=== PATIENT | male | born 1980 | race Two or more races ===

== ENCOUNTER 2018-05-24 16:56 | Emergency (ER) | payer OTHER ==
[~2018-05-24] VITALS: Ht 160 cm; Wt 74.8 kg
[2018-05-24] MEDS ORDERED: IV NORMAL SALINE 1000ML BAG 1,000 ML IV SCH (17:42)
[2018-05-24 18:11] LABS: BASO # 0.1 x10^3/uL (0.0-0.2); BASO % 1 % (0-3); EOS # 0.3 x10^3/uL (0.0-0.7); EOS % 4 % (0-3); HEMATOCRIT 49.7 % (39.0-53.0); HEMOGLOBIN 16.8 g/dL (13.0-17.5); LYMPH # 2.5 x10^3/uL (1.0-4.8); LYMPH % 30 % (24-48); MEAN CORPUSCULAR HEMOGLOBIN 28 pg (25-35); MEAN CORPUSCULAR HGB CONC 34 g/dL (31-37); MEAN CORPUSCULAR VOLUME 82 fL (79-100); MONO # 0.7 x10^3/uL (0.0-1.1); MONO % 8 % (0-9); NEUT # 4.8 x10^3uL (1.8-7.7); NEUT % 57 % (31-73); PLATELET COUNT 369 x10^3/uL (140-400); RED BLOOD COUNT 6.09 x10^6/uL (4.30-5.70); RED CELL DISTRIBUTION WIDTH 14.7 % (11.5-14.5); WHITE BLOOD COUNT 8.4 x10^3/uL (4.0-11.0)
--- NOTE | 2018-05-24 18:12 | PHYS DOC ---
Past Medical History Additional Past Medical Histor: denies all history (LV CEBALLOS APRN) Additional Information: states very occoc Alcohol Use: Occasionally Additional Information: 4 beers a month Drug Use: None (LV CEBALLOS APRN) Adult General Chief Complaint Chief Complaint: ABDOMINAL PAIN HPI HPI Patient is a 37 year old male who presents with right upper quadrant tenderness and pain for the last 3 days. Patient states he just awoke and had this stabbing pain. It does not radiate. Patient denies nausea, vomiting, fever , chest pain, shortness of air. Patient rates his pain 8 out of 10. Patient states he is drinking fluids and eating without complication. Patient states it hurts with movements or hurts with deep breaths and it is constant pain. Patient is afebrile. Heart rate 63, 90% on room air, 130/81. (LV CEBALLOS APRN) Review of Systems Review of Systems Constitutional: Denies fever or chills [] Eyes: Denies change in visual acuity, redness, or eye pain [] HENT: Denies nasal congestion or sore throat [] Respiratory: Denies cough or shortness of breath [] Cardiovascular: No additional information not addressed in HPI [] GI: RUQ abdominal pain, denies nausea, vomiting, bloody stools or diarrhea [] : Denies dysuria or hematuria [] Musculoskeletal: Denies back pain or joint pain [] Integument: Denies rash or skin lesions [] Neurologic: Denies headache, focal weakness or sensory changes [] All other systems were reviewed and found to be within normal limits, except as documented in this note. (LV CEBALLOS APRN) Current Medications Current Medications Current Medications Medications (Trade) Dose Ordered Sig/Jesica Start Time Stop Time Status Last Admin Dose Admin Fentanyl Citrate (Fentanyl 2ml Vial) 50 mcg 1X ONCE 05/24/18 18:15 05/24/18 18:46 DC 05/24/18 18:20 50 MCG Info (CONTRAST GIVEN -- Rx MONITORING) 1 each PRN DAILY PRN 05/24/18 19:00 05/26/18 18:59 Iohexol (Omnipaque 300 Mg/ml) 75 ml 1X ONCE 05/24/18 18:45 05/24/18 18:46 DC 05/24/18 18:52 75 ML Morphine Sulfate (Morphine Sulfate) 4 mg 1X ONCE 05/24/18 20:30 05/24/18 20:32 DC 05/24/18 20:30 4 MG Ondansetron HCl (Zofran) 4 mg 1X ONCE 05/24/18 18:15 05/24/18 18:46 DC 05/24/18 18:20 4 MG Sodium Chloride 1,000 ml @ 1,000 mls/hr Q1H 05/24/18 17:42 05/24/18 18:46 DC 05/24/18 18:18 1,000 MLS/HR (MARCIN CHANG DO) Allergies Allergies Allergies Coded Allergies Type Severity Reaction Last Updated Verified No Known Drug Allergies 05/24/18 No (MARCIN CHANG DO) Physical Exam Physical Exam Constitutional: Well developed, well nourished, no acute distress, non-toxic appearance. [] HENT: Normocephalic, atraumatic, bilateral external ears normal, oropharynx moist, no oral exudates, nose normal. [] Eyes: PERRLA, EOMI, conjunctiva normal, no discharge. [] Neck: Normal range of motion, no tenderness, supple, no stridor. [] Cardiovascular:Heart rate regular rhythm, no murmur [] Lungs & Thorax: Bilateral breath sounds clear to auscultation [] Abdomen: Bowel sounds normal, soft, RUQ tenderness, no masses, no pulsatile masses. [] Skin: Warm, dry, no erythema, no rash. [] Back: No tenderness, no CVA tenderness. [] Extremities: No tenderness, no cyanosis, no clubbing, ROM intact, no edema. [] Neurologic: Alert and oriented X 3, normal motor function, normal sensory function, no focal deficits noted. [] Psychologic: Affect normal, judgement normal, mood normal. [] (LIN,LV Pennington APRN) Current Patient Data Vital Signs Vital Signs Date Time Temp Pulse Resp B/P (MAP) Pulse Ox O2 Delivery O2 Flow Rate FiO2 05/24/18 20:44 61 16 134/69 (90) 97 Room Air 05/24/18 17:18 98.0 98.0 (MARCIN CHANG DO) Lab Values Laboratory Tests Test 05/24/18 17:40 05/24/18 17:50 Urine Collection Type Unknown Urine Color Yellow Urine Clarity Clear Urine pH 6.5 Urine Specific [place] 1.010 Urine Protein Negative mg/dL (NEG-TRACE) Urine Glucose (UA) Negative mg/dL (NEG) Urine Ketones (Stick) Negative mg/dL (NEG) Urine Blood Negative (NEG) Urine Nitrite Negative (NEG) Urine Bilirubin Negative (NEG) Urine Urobilinogen Dipstick 1.0 mg/dL (0.2 mg/dL) Urine Leukocyte Esterase Negative (NEG) Urine RBC 0 /HPF (0-2) Urine WBC 0 /HPF (0-4) Urine Bacteria 0 /HPF (0-FEW) Urine Opiates Screen Neg (NEG) Urine Methadone Screen Neg (NEG) Urine Barbiturates Neg (NEG) Urine Phencyclidine Screen Neg (NEG) Urine Amphetamine/Methamphetamine Neg (NEG) Urine Benzodiazepines Screen Neg (NEG) Urine Cocaine Screen Neg (NEG) Urine Cannabinoids Screen Neg (NEG) Urine Ethyl Alcohol Neg (NEG) White Blood Count 8.4 x10^3/uL (4.0-11.0) Red Blood Count 6.09 x10^6/uL (4.30-5.70) H Hemoglobin 16.8 g/dL (13.0-17.5) Hematocrit 49.7 % (39.0-53.0) Mean Corpuscular Volume 82 fL (79-100) Mean Corpuscular Hemoglobin 28 pg (25-35) Mean Corpuscular Hemoglobin Concent 34 g/dL (31-37) Red Cell Distribution Width 14.7 % (11.5-14.5) H Platelet Count 369 x10^3/uL (140-400) Neutrophils (%) (Auto) 57 % (31-73) Lymphocytes (%) (Auto) 30 % (24-48) Monocytes (%) (Auto) 8 % (0-9) Eosinophils (%) (Auto) 4 % (0-3) H Basophils (%) (Auto) 1 % (0-3) Neutrophils # (Auto) 4.8 x10^3uL (1.8-7.7) Lymphocytes # (Auto) 2.5 x10^3/uL (1.0-4.8) Monocytes # (Auto) 0.7 x10^3/uL (0.0-1.1) Eosinophils # (Auto) 0.3 x10^3/uL (0.0-0.7) Basophils # (Auto) 0.1 x10^3/uL (0.0-0.2) Sodium Level 141 mmol/L (136-145) Potassium Level 4.0 mmol/L (3.5-5.1) Chloride Level 101 mmol/L (98-107) Carbon Dioxide Level 32 mmol/L (21-32) Anion Gap 8 (6-14) Blood Urea Nitrogen 8 mg/dL (8-26) Creatinine 0.7 mg/dL (0.7-1.3) Estimated GFR (Cockcroft-Gault) 128.3 BUN/Creatinine Ratio 11 (6-20) Glucose Level 93 mg/dL (70-99) Calcium Level 9.3 mg/dL (8.5-10.1) Total Bilirubin 0.5 mg/dL (0.2-1.0) Aspartate Amino Transferase (AST) 86 U/L (15-37) H Alanine Aminotransferase (ALT) 99 U/L (16-63) H Alkaline Phosphatase 188 U/L (46-116) H Troponin I Quantitative < 0.017 ng/mL (0.000-0.055) Total Protein 8.9 g/dL (6.4-8.2) H Albumin 3.9 g/dL (3.4-5.0) Albumin/Globulin Ratio 0.8 (1.0-1.7) L Lipase 109 U/L (73-393) Laboratory Tests 05/24/18 17:50 Laboratory Tests 05/24/18 17:50 [facility] Lab Values Laboratory Tests Test 05/24/18 17:40 05/24/18 17:50 Urine Collection Type Unknown Urine Color Yellow Urine Clarity Clear Urine pH 6.5 Urine Specific [place] 1.010 Urine Protein Negative mg/dL (NEG-TRACE) Urine Glucose (UA) Negative mg/dL (NEG) Urine Ketones (Stick) Negative mg/dL (NEG) Urine Blood Negative (NEG) Urine Nitrite Negative (NEG) Urine Bilirubin Negative (NEG) Urine Urobilinogen Dipstick 1.0 mg/dL (0.2 mg/dL) Urine Leukocyte Esterase Negative (NEG) Urine RBC 0 /HPF (0-2) Urine WBC 0 /HPF (0-4) Urine Bacteria 0 /HPF (0-FEW) Urine Opiates Screen Neg (NEG) Urine Methadone Screen Neg (NEG) Urine Barbiturates Neg (NEG) Urine Phencyclidine Screen Neg (NEG) Urine Amphetamine/Methamphetamine Neg (NEG) Urine Benzodiazepines Screen Neg (NEG) Urine Cocaine Screen Neg (NEG) Urine Cannabinoids Screen Neg (NEG) Urine Ethyl Alcohol Neg (NEG) White Blood Count 8.4 x10^3/uL (4.0-11.0) Red Blood Count 6.09 x10^6/uL (4.30-5.70) H Hemoglobin 16.8 g/dL (13.0-17.5) Hematocrit 49.7 % (39.0-53.0) Mean Corpuscular Volume 82 fL (79-100) Mean Corpuscular Hemoglobin 28 pg (25-35) Mean Corpuscular Hemoglobin Concent 34 g/dL (31-37) Red Cell Distribution Width 14.7 % (11.5-14.5) H Platelet Count 369 x10^3/uL (140-400) Neutrophils (%) (Auto) 57 % (31-73) Lymphocytes (%) (Auto) 30 % (24-48) Monocytes (%) (Auto) 8 % (0-9) Eosinophils (%) (Auto) 4 % (0-3) H Basophils (%) (Auto) 1 % (0-3) Neutrophils # (Auto) 4.8 x10^3uL (1.8-7.7) Lymphocytes # (Auto) 2.5 x10^3/uL (1.0-4.8) Monocytes # (Auto) 0.7 x10^3/uL (0.0-1.1) Eosinophils # (Auto) 0.3 x10^3/uL (0.0-0.7) Basophils # (Auto) 0.1 x10^3/uL (0.0-0.2) Sodium Level 141 mmol/L (136-145) Potassium Level 4.0 mmol/L (3.5-5.1) Chloride Level 101 mmol/L (98-107) Carbon Dioxide Level 32 mmol/L (21-32) Anion Gap 8 (6-14) Blood Urea Nitrogen 8 mg/dL (8-26) Creatinine 0.7 mg/dL (0.7-1.3) Estimated GFR (Cockcroft-Gault) 128.3 BUN/Creatinine Ratio 11 (6-20) Glucose Level 93 mg/dL (70-99) Calcium Level 9.3 mg/dL (8.5-10.1) Total Bilirubin 0.5 mg/dL (0.2-1.0) Aspartate Amino Transferase (AST) 86 U/L (15-37) H Alanine Aminotransferase (ALT) 99 U/L (16-63) H Alkaline Phosphatase 188 U/L (46-116) H Troponin I Quantitative < 0.017 ng/mL (0.000-0.055) Total Protein 8.9 g/dL (6.4-8.2) H Albumin 3.9 g/dL (3.4-5.0) Albumin/Globulin Ratio 0.8 (1.0-1.7) L Lipase 109 U/L (73-393) Laboratory Tests 05/24/18 17:50 Laboratory Tests 05/24/18 17:50 (VL CEBALLOS APRN) EKG EKG Sinus Rhythm, T wave abnormality in anterior leads, no STEMI[] Interpretation Time: [address] Chang (LV CEBALLOS APRN) Radiology/Procedures Radiology/Procedures [] (LV CEBALLOS APRN) Radiology/Procedures CT abdomen pelvis: Findings of omentitis. Ultrasound right upper quadrant: No findings of acute cholecystitis or cholelithiasis. (MARCIN CHANG DO) Impressions: [facility] [address] [place] [address] IMAGING REPORT Signed PATIENT: DEBBI DE LA ROSA ACCOUNT: [id number] : 1980 LOCATION: ER AGE: 37 SEX: M EXAM STATUS: REG ER ORD. PHYSICIAN: LV CEBALLOS APRN REASON: RUQ pain, OMNI 300, 75ml PROCEDURE: CT ABD PELV W/ IV CONTRST ONLY PQRS Compliance statement: One or more of the following individualized dose reduction techniques were utilized for this examination: 1. Automated exposure control. 2. Adjustment of the mA and/or kV according to patient size. 3. Use of iterative reconstruction technique. Indication:RUQ pain, OMNI 300, 75ml TECHNIQUE: CT abdomen and pelvis with IV contrast with multiplanar reformats. COMPARISON: None FINDINGS: Heart is normal in size. No pericardial or pleural effusion. Clear lung bases. Liver, spleen, gallbladder, pancreas, adrenals and kidneys are within normal limits. No enlarged retroperitoneal or pelvic adenopathy. No free pelvic fluid or ascites. No bowel obstruction. Normal appendix. 2.3 x 1.4 cm area of inflammation is seen in the right parasagittal omentum. No pneumoperitoneum. The prostate and seminal vesicles show no large mass. Urinary bladder within normal limits. No suspicious bony lesion. IMPRESSION: Small area of inflammation in the right parasagittal omentum may represent omentitis. Electronically signed by: Isidoro Vega DO (05/24/2018 7:07 PM) [facility] DICTATED and SIGNED BY: ISIDORO VEGA DO DATE: 05/24/181903 (LV CEBALLOS APRN) Course & Med Decision Making Course & Med Decision Making Patient is a 37 year old male who presents with right upper quadrant tenderness and pain for the last 3 days. Patient states he just awoke and had this stabbing pain. It does not radiate. Patient denies dysuria, constipation, diarrhea, nausea, vomiting, fever, chest pain, shortness of air. Patient rates his pain 8 out of 10. Patient states he is drinking fluids and eating without complication. Patient states it hurts with movements or hurts with deep breaths and it is constant pain. Patient is afebrile. Heart rate 63, 90% on room air, 130/81. Alert and oriented. Ambulatory with steady gait. Right upper quadrant of the abdomen is tender to palpation rest abdomen is soft and nontender. Lungs are clear to auscultation all lobes. Heart rate regular without murmur. No extremity swelling. PERRLA. Speaks in full clear sentences. Skin is pink warm and dry. Mucous membranes are moist. CT ABD PELV shows Small area of inflammation in the right parasagittal omentum may represent omentitis. EKG showed T-wave abnormality in the anterior leads and sinus rhythm but no STEMI. AST 86, ALT 99, alkaline phosphatase 188. I have ordered a limited abdomen US. 1956: Patient reported off to Dr Chang (LV CEBALLOS APRN) Course & Med Decision Making Significant improvement with treatment. Ultrasound, CT reviewed. Patient offered hospital admission for further monitoring and treatment. Declines hospital admission prefers outpatient follow-up. Antibiotics, pain medications prescribed. Return precautions reviewed. (MARCIN CHANG DO) Dragon Disclaimer Dragon Disclaimer This electronic medical record was generated, in whole or in part, using a voice recognition dictation system. (LV CEBALLOS APRN) Departure Departure Impression: Primary Impression: Abdominal pain Disposition: HOME, SELF-CARE Condition: GOOD Referrals: NO PCP (PCP) Scripts Hydrocodone/Acetaminophen (Hydrocodone-Acetamin 5-325 mg) 1 Each Tablet 1 EACH PO Q6HRS for 3 Days, #12 TAB Prov: MARCIN CHANG DO 05/24/18 Metronidazole (FLAGYL) 250 Mg Tablet 1 TAB PO TID, #21 TAB Prov: MARCIN CHANG DO 05/24/18 LV CEBALLOS APRN May 24, 2018 18:12 MARCIN CHANG DO May 24, 2018 21:18
[2018-05-24] MEDS ORDERED: ONDANSETRON PF 4 MG/2 ML VIAL. IV ONE (18:15)
[2018-05-24] MEDS ORDERED: fentaNYL PF VIAL 100 MCG/2 ML VIAL IV ONE (18:15)
[2018-05-24 18:16] LABS: BILIRUBIN,URINE NEGATIVE (NEG); CLARITY,URINE CLEAR; COLOR,URINE YELLOW; NITRITE,URINE NEGATIVE (NEG); PH,URINE 6.5; PROTEIN,URINE NEGATIVE (NEG-TRACE)
[2018-05-24 18:24] LABS: CALCIUM 9.3 mg/dL (8.5-10.1); CREATININE 0.7 mg/dL (0.7-1.3); GFR 128.3
[2018-05-24 18:27] LABS: ALBUMIN 3.9 g/dL (3.4-5.0); ALBUMIN/GLOBULIN RATIO 0.8 (1.0-1.7); TOTAL BILIRUBIN 0.5 mg/dL (0.2-1.0); TOTAL PROTEIN 8.9 g/dL (6.4-8.2)
[2018-05-24 18:33] LABS: BACTERIA,URINE 0 /HPF (0-FEW); RBC,URINE 0 /HPF (0-2); WBC,URINE 0 /HPF (0-4)
[2018-05-24] MEDS ORDERED: IOHEXOL 300 MG/ML 100ML VIAL. IV ONE (18:45)
[2018-05-24] MEDS ORDERED: CONTRAST GIVEN. MC PRN (19:00)
[2018-05-24 19:10] LABS: BARBITURATES NEG (NEG); BENZODIAZEPINES NEG (NEG); CANNABINOIDS NEG (NEG); COCAINE NEG (NEG); METHADONE NEG (NEG); OPIATES NEG (NEG); PHENCYCLIDINE NEG (NEG)
--- NOTE | 2018-05-24 19:10 | RAD ---
PQRS Compliance statement: One or more of the following individualized dose reduction techniques were utilized for this examination: 1. Automated exposure control. 2. Adjustment of the mA and/or kV according to patient size. 3. Use of iterative reconstruction technique. Indication:RUQ pain, OMNI 300, 75ml TECHNIQUE: CT abdomen and pelvis with IV contrast with multiplanar reformats. COMPARISON: None FINDINGS: Heart is normal in size. No pericardial or pleural effusion. Clear lung bases. Liver, spleen, gallbladder, pancreas, adrenals and kidneys are within normal limits. No enlarged retroperitoneal or pelvic adenopathy. No free pelvic fluid or ascites. No bowel obstruction. Normal appendix. 2.3 x 1.4 cm area of inflammation is seen in the right parasagittal omentum. No pneumoperitoneum. The prostate and seminal vesicles show no large mass. Urinary bladder within normal limits. No suspicious bony lesion. IMPRESSION: Small area of inflammation in the right parasagittal omentum may represent omentitis. Electronically signed by: Isidoro Vega DO (05/24/2018 7:07 PM) [facility]
[2018-05-24 19:14] LABS: AMPHETAMINE/METHAMPHETAMINE NEG (NEG)
[2018-05-24] MEDS ORDERED: MORPHINE SULFATE 4 MG/ML VIAL. IV ONE (20:30)
--- NOTE | 2018-05-24 20:56 | RAD ---
Indication:RUQ PAIN X'S 3 DAYS. PT COMPLAINS OF SEVERE PAIN WHEN PUSHING ON GB AND PANCREAS TECHNIQUE: Grayscale, color Doppler and spectral waveform is of the abdomen obtained. COMPARISON:None FINDINGS:Visualized pancreas is within normal limits. IVC is patent. No aortic aneurysm. No gallstones, pericholecystic fluid or gallbladder wall thickening. Main portal vein is patent with hepatopedal flow. Liver measures 14 cm in longest dimension and is normal in size and echogenicity. Right kidney measures 9.7 cm in length without hydronephrosis. CBD measures 4 mm in diameter and is within normal limits. IMPRESSION: No cholelithiasis or sonographic evidence of acute cholecystitis. Electronically signed by: Isidoro Vega DO (05/24/2018 8:53 PM) [facility]
[2018-05-24] MEDS ORDERED: METR250T PO (21:13)
[2018-05-24] MEDS ORDERED: HYDR-2759 PO (21:13)
[2018-05-24 21:20] VITALS: BP 128/64
--- NOTE | 2018-05-25 11:09 | EKG ---
[facility] [address] [place] [address] Test Date: 2018-05-24 Test Time: 18:26:18 Pat Name: DEBBI DE LA ROSA Department: Room: Gender: M [employer] Rec[employer]iter: : 1980 Requested By: LV CEBALLOS Order Number: [id number] Reading MD: Seng Saab Measurements Intervals [place] Rate: 62 P: 41 ND: 180 QRS: 45 QRSD: 94 T: -4 QT: 390 QTc: 398 Interpretive Statements SINUS RHYTHM INCOMPLETE RIGHT BUNDLE BRANCH BLOCK NONSPECIFIC ST-T WAVE CHANGES. Electronically Signed On 05-26-2018 11:01:03 [employer] by Seng Saab
== END 2018-05-24 21:52 | disposition home or self-care (01) ==
LOC: ER 16:56
DX: R10.11 Right upper quadrant pain (principal)
CPT/HCPCS: 36415; 74177; 76705; 80053; 80307; 81001; 83690; 84484; 85025; 93005; 96374; 96375; 99284; J2270; J2405; J3010; J7030; Q9967